=== PATIENT | male | born 2000 | race Two or more races ===

== ENCOUNTER 2022-09-05 12:53 | Emergency (ER) | payer SELFPAY ==
[~2022-09-05] VITALS: Ht 170.2 cm; Wt 59.9 kg
--- NOTE | 2022-09-05 12:55 | NUR ---
RECEIVED PT 22 YRS M[facility]
[2022-09-05] MEDS ORDERED: ACETAMINOPHEN ES 500 MG TABLET PO ONE (13:30)
[2022-09-05] MEDS ORDERED: LEVETIRACETAM (250 MG) 250 MG TABLET PO ONE ×2 (13:30→14:02)
[2022-09-05] MEDS ORDERED: ACETAMINOPHEN ES 500 MG TABLET ONE (14:01)
[2022-09-05] MEDS ORDERED: LORAZEPAM INJ 2 MG/ML VIAL ONE (14:27)
--- NOTE | 2022-09-05 14:28 | NUR ---
PT HAD GENRALIZED ACTIVE SEIZURE FIO2 100% ON DR. JACKSON AT BED SIDE ATIVAN 2 MG IVP BOTH SIDE WAS IN SZ PRECOTION
[2022-09-05] MEDS ORDERED: IV NS 0.9% 1,000 ML BAG IV ONE (14:30)
[2022-09-05] MEDS ORDERED: LORAZEPAM INJ 2 MG/ML VIAL IV ONE (14:30)
--- NOTE | 2022-09-05 15:43 | NUR ---
PT COFUSED PULL OUT IV LINE
--- NOTE | 2022-09-05 17:00 | NUR ---
CONTENUE AND CLOSLY OBSEVE PT NO ACTVE SEIZURE
--- NOTE | 2022-09-05 17:20 | NUR ---
IV removed. Catheter intact and site benign. Pressure and 4x4 applied to site. No bleeding noted.
--- NOTE | 2022-09-05 17:30 | NUR ---
Patient discharged to home in stable condition. Written and verbal after care instructions given. Patient verbalizes understanding of instruction.
[2022-09-05 17:51] VITALS: BP 112/66
== END 2022-09-05 17:52 | disposition home or self-care (01) ==
LOC: ER 12:53
DX: G40.909 Epilepsy, unspecified, not intractable, without status epilepticus (principal)
CPT/HCPCS: 99285; 96374; 96361; 82962; J2060; J7030